=== PATIENT | female | born 1970 | race Caucasian/White ===

== ENCOUNTER → 2017-02-05 | Outpatient (CLI) | payer OTHER ==
[~2017-02-05] MED LIST: ALBU0.5N2 INH; ALBUAER2 INH; CALCTAB5 PO; CHOL100010 PO; CYCL5TAB28 PO; CYM/30 PO; FISHOIL PO; FLNIN NAE; LEVA1NEB19 INH; LORA-741 PO; MELO7.5T6 PO; PRAV20TA PO; SNG10 PO; TEMA30CA4 PO; TIOTCAP INH; TRAM-10 PO; VALA1TAB31 PO; [UNRECOGNIZED DRUG - CODE] PO
--- NOTE | 2017-02-05 13:55 | DIAGNOSTIC IMAGING REPORT ---
CHEST 2 VIEWS ROUTINE HISTORY: G47.34 Nocturnal [id number] COMPARISON: Chest 08/01/2015. FINDINGS: Right basilar linear density has almost completely resolved. This likely represents resolving subsegmental atelectasis. Stable blunting of the right lateral costophrenic sulcus. Left lung is clear. No new focal lung consolidations. No evidence for pulmonary edema. No pleural effusions. No pneumothorax. IMPRESSION: Improved aeration within the right lung base. No acute process within the chest. Electronically signed by: Corby Kenny M.D. 02/05/2017 1:53 PM Dictated Date/Time: 02/05/2017 1:52 PM
== END | disposition home or self-care (01) ==
LOC: C.RAD1850 13:33
PROVIDERS: ATTEND Internal Medicine Endocrinology, Diabetes & Metabolism
DX: G47.34 Idiopathic sleep related nonobstructive alveolar hypoventilation (principal)

== ENCOUNTER → 2017-02-13 | Outpatient (CLI) | payer OTHER ==
[2017-02-13 13:46] LABS: BASO % 0.5 %; BASO ABS # 0.05 K/uL (0-0.2); COMPLETE YES; EOS % 2.9 %; HEMATOCRIT 43.8 % (37-47); IG% 0.3 %; LYMPH % 40.5 %; LYMPH ABS # 4.26 K/uL (1.2-3.4); MEAN CELL VOLUME 89.9 fL (80-100); MEAN CORPUSCULAR HEMOGLOBIN 31.8 pg (25-34); MEAN CORPUSCULAR HGB CONC 35.4 g/dl (32-36); MEAN PLATELET VOLUME 9.6 fL (7.4-10.4); MONO % 5.6 %; NEUT % 50.2 %; PLATELET COUNT 253 K/uL (130-400); RED BLOOD COUNT 4.87 M/uL (4.2-5.4); WHITE BLOOD COUNT 10.51 K/uL (4.8-10.8)
[2017-02-13 14:20] LABS: ALT/SGPT 31 U/L (12-78); AST/SGOT 15 U/L (15-37); BLOOD UREA NITROGEN 14 mg/dl (7-18); BUN/CREATININE RATIO 15.4 (10-20); CALCIUM 9.9 mg/dl (8.5-10.1); CARBON DIOXIDE 29 mmol/L (21-32); CHLORIDE 105 mmol/L (98-107); CREATININE 0.88 mg/dl (0.60-1.20); GLUCOSE 96 mg/dl (70-99); POTASSIUM 3.9 mmol/L (3.5-5.1); SODIUM 140 mmol/L (136-145)
[2017-02-13 14:23] LABS: CHOLESTEROL 274 mg/dl (0-200); CHOLESTEROL/HDL RATIO 4.3; HDL CHOLESTEROL 63 mg/dl; LDL CHOLESTEROL CALCULATED 181 mg/dl; TRIGLYCERIDES 150 mg/dl (0-150); VERY LOW DENSITY LIPOPROT CALC 30 mg/dl
== END | disposition home or self-care (01) ==
LOC: C.LAB1850 12:46
PROVIDERS: ATTEND Internal Medicine
DX: E78.00 Pure hypercholesterolemia, unspecified (principal); M81.0 Age-related osteoporosis without current pathological fracture; G43.909 Migraine, unspecified, not intractable, without status migrainosus

== ENCOUNTER → 2017-06-05 | Outpatient (CLI) | payer OTHER ==
[~2017-06-05] MED LIST changes: +ALBINSX PO; +BUTA1CAP6 PO; +CALC-393 PO; +CHOL1TAB76 PO; +CIPR-255 PO; +CYCL5TAB PO; +FLUT50SP45 NAE; +METR-163 PO; +OMEGCAP2 PO; +OXYC1TAB3 PO; +PRAV80TA PO; +SPRIN/30 INH; +VNTHFA/IN INH; +XPNINS125 PO
--- NOTE | 2017-06-05 09:57 | DIAGNOSTIC IMAGING REPORT ---
LEFT ELBOW 3 VIEWS CLINICAL HISTORY: Left elbow pain. FINDINGS: 3 views of left elbow are obtained. No prior studies are available for comparison at the time of dictation. The skeletal structures are well mineralized. No fracture is seen. The joint spaces are well-maintained. There is no joint effusion. Mild dorsal soft tissue swelling is noted. IMPRESSION: Mild dorsal soft tissues swelling with no radiographic evidence of left elbow fracture. Electronically signed by: Bart Thibodeaux M.D. 06/05/2017 9:56 AM Dictated Date/Time: 06/05/2017 9:54 AM
--- NOTE | 2017-06-05 09:59 | DIAGNOSTIC IMAGING REPORT ---
RIGHT FOOT MIN 3 VIEWS ROUTINE CLINICAL HISTORY: 46 years-old Female presenting with chronic right foot pain. TECHNIQUE: Frontal, oblique, and lateral views of the right foot were obtained. COMPARISON: None. FINDINGS: No acute fracture, malalignment, or radiopaque foreign body. Bipartite lateral sesamoid noted at the first metatarsal. IMPRESSION: 1. No acute osseous injury. Electronically signed by: Baldo Asif 06/05/2017 9:57 AM Dictated Date/Time: 06/05/2017 9:55 AM
== END | disposition home or self-care (01) ==
LOC: C.RAD1850 09:39
PROVIDERS: ATTEND Internal Medicine
DX: M79.671 Pain in right foot (principal); M25.522 Pain in left elbow

== ENCOUNTER → 2017-06-13 | Outpatient (CLI) | payer OTHER ==
--- NOTE | 2017-06-16 15:12 | MAMMOGRAPHY REPORT ---
BILATERAL DIGITAL SCREENING MAMMOGRAM TOMOSYNTHESIS WITH CAD: 06/13/2017 CLINICAL HISTORY: Routine screening. Patient has no complaints. TECHNIQUE: Breast tomosynthesis in addition to standard 2D mammography was performed. Current study was also evaluated with a Computer Aided Detection (CAD) system. COMPARISON: Comparison is made to exams dated: 06/12/2016 mammogram, 05/15/2015 mammogram, 05/12/2014 m ammogram, 05/11/2013 mammogram, 09/24/2011 mammogram, and 05/18/2013 mammogram - [facility]. BREAST COMPOSITION: There are scattered areas of fibroglandular density in both breasts. FINDINGS: No suspicious masses, calcifications, or areas of architectural distortion are noted in ei ther breast. There has been no significant interval change compared to prior exams. IMPRESSION: ACR BI-RADS CATEGORY 1: NEGATIVE There is no mammographic evidence of malignancy. A 1 year screening mammogram is recommended. The pa tient will receive written notification of the results. Approximately 10% of breast cancers are not detected with mammography. A negative mammographic report should not delay biopsy if a clinically suggestive mass is present. Tram Bolton M.D. ah/:06/13/2017 15:57:03 Greige Mender: Ginny DELEON(Armen)(M), [facility] letter sent: Normal 1/2 BI-RADS Code: ACR BI-RADS Category 1: Negative
== END | disposition home or self-care (01) ==
LOC: C.MAMM 15:08
PROVIDERS: ATTEND Internal Medicine
DX: Z12.31 Encounter for screening mammogram for malignant neoplasm of breast (principal)

== ENCOUNTER 2017-09-05 13:09 | Emergency (ER) | payer OTHER ==
[~2017-09-05] VITALS: Ht 160 cm; Wt 70.1 kg
[~2017-09-05 13:09] MED LIST changes: -ALBINSX PO; -BUTA1CAP6 PO; -CALC-393 PO; -CHOL1TAB76 PO; -CIPR-255 PO; -CYCL5TAB PO; -FLUT50SP45 NAE; -METR-163 PO; -OMEGCAP2 PO; -OXYC1TAB3 PO; -PRAV80TA PO; -SPRIN/30 INH; -VNTHFA/IN INH; -XPNINS125 PO
[2017-09-05 13:12] VITALS: TEMP 37.3; Ht 160 cm; Wt 70.1 kg
[2017-09-05] MEDS ORDERED: FLUT50SP45 NAE (13:47)
[2017-09-05] MEDS ORDERED: CHOL1TAB76 PO (13:47)
[2017-09-05] MEDS ORDERED: PRAV80TA PO (13:47)
[2017-09-05] MEDS ORDERED: VNTHFA/IN INH (13:47)
[2017-09-05] MEDS ORDERED: CYCL5TAB PO (13:47)
[2017-09-05] MEDS ORDERED: SPRIN/30 INH (13:47)
[2017-09-05] MEDS ORDERED: SNG10 PO (13:47)
[2017-09-05] MEDS ORDERED: BUTA1CAP6 PO (13:47)
[2017-09-05] MEDS ORDERED: XPNINS125 PO (13:47)
[2017-09-05] MEDS ORDERED: ALBINSX PO (13:47)
[2017-09-05] MEDS ORDERED: CALC-393 PO (13:47)
[2017-09-05] MEDS ORDERED: OMEGCAP2 PO (13:47)
[2017-09-05] MEDS ORDERED: KETOROLAC TROMETHAMINE 30 MG/ML VIAL IV STA (13:48)
[2017-09-05] MEDS ORDERED: DiphenhydrAMINE HCL 50 MG/ML VIAL IV STA (13:48)
[2017-09-05] MEDS ORDERED: ONDANSETRON INJ 2 MG/ML 2 ML VIAL IV STA (13:48)
[2017-09-05] MEDS ORDERED: SODIUM CHLORIDE 0.9% 1000ML 1,000 ML IV STA (13:48)
[2017-09-05] MEDS ORDERED: DEXAMETHASONE SOD INJ 10 MG/ML VIAL PO ONE (14:00)
[2017-09-05 14:28] LABS: BASO % 0.2 %; BASO ABS # 0.03 K/uL (0-0.2); COMPLETE YES; EOS % 1.9 %; HEMATOCRIT 40.7 % (37-47); IG% 0.2 %; LYMPH % 21.3 %; LYMPH ABS # 2.87 K/uL (1.2-3.4); MEAN CELL VOLUME 90.2 fL (80-100); MEAN CORPUSCULAR HEMOGLOBIN 31.9 pg (25-34); MEAN CORPUSCULAR HGB CONC 35.4 g/dl (32-36); MEAN PLATELET VOLUME 9.5 fL (7.4-10.4); MONO % 7.3 %; NEUT % 69.1 %; PLATELET COUNT 243 K/uL (130-400); RED BLOOD COUNT 4.51 M/uL (4.2-5.4); WHITE BLOOD COUNT 13.46 K/uL (4.8-10.8)
[2017-09-05 14:36] LABS: INR 0.9 (0.9-1.1); PROTHROMBIN TIME (PATIENT) 9.9 SECONDS (9.0-12.0)
[2017-09-05 14:43] LABS: URINE APPEARANCE CLEAR (CLEAR); URINE BILIRUBIN NEG (NEG); URINE COLOR YELLOW; URINE NITRITE NEG (NEG); URINE PH 5.5 (4.5-7.5); URINE SPECIFIC GRAVITY 1.016 (1.000-1.030); UROBILINOGEN NEG (NEG); ZZUR CULT IF INDIC CLEAN CATCH NO
[2017-09-05 14:49] LABS: ALT/SGPT 28 U/L (12-78); AST/SGOT 10 U/L (15-37); BLOOD UREA NITROGEN 17 mg/dl (7-18); BUN/CREATININE RATIO 26.9 (10-20); CALCIUM 9.2 mg/dl (8.5-10.1); CARBON DIOXIDE 23 mmol/L (21-32); CHLORIDE 109 mmol/L (98-107); CREATININE 0.63 mg/dl (0.60-1.20); GLUCOSE 92 mg/dl (70-99); POTASSIUM 3.9 mmol/L (3.5-5.1); SODIUM 138 mmol/L (136-145)
[2017-09-05 14:52] LABS: ALKALINE PHOSPHATASE 102 U/L (45-117)
[2017-09-05 14:53] LABS: MANUAL MICROSCOPIC REQUIRED? NO; REVIEW REQ? NO
--- NOTE | 2017-09-05 17:30 | DIAGNOSTIC IMAGING REPORT ---
ABD/PELVIS IV AND ORAL CONT CLINICAL HISTORY: 47 years-old Female presenting with LLQ ABDOMINAL PAIN. TECHNIQUE: Multidetector CT of the abdomen and pelvis was performed after the administration of oral and intravenous contrast. IV contrast: 116 mL of Optiray 320. A dose lowering technique was used consistent with the principles of ALARA (as low as reasonably achievable). COMPARISON: 06/20/2010. CT DOSE (mGy.cm): The estimated cumulative dose is 350.79 mGy.cm. FINDINGS: Master Cook topogram: Unremarkable. Lung bases: Minimal dependent changes likely atelectasis. Normal heart size. No pericardial or pleural effusion. Liver: Normal morphology. Perfusional variation noted along the fissure for the ligamentum teres. Patent hepatic vasculature. Biliary: No intrahepatic or extrahepatic biliary ductal dilatation. Normal gallbladder. Pancreas: Mild parenchymal atrophy. Spleen: Normal. Adrenal glands: Normal. Kidneys and ureters: Nonobstructing 3 mm calculus at the lower pole of the right kidney. No left renal calculus. No hydronephrosis. Ureters normal. Bladder: Normal. Pelvic organs: Uterus surgically absent. No adnexal masses. Bowel: Diverticulosis with wall thickening and pericolonic inflammatory change at the level of the junction of the descending and sigmoid colon. Associated trace fluid and peritoneal thickening. No bowel obstruction. Normal appendix. Peritoneal cavity: Trace free fluid in the left lower quadrant. No gross evidence of pneumoperitoneum. Vasculature: Atherosclerosis of the normal caliber abdominal aorta. IVC patent. Lymph nodes: Few prominent lymph nodes in the left external iliac region, likely reactive. Few additional prominent nodes of the celiac axis, which are subcentimeter in the short axis. Abdominal wall: Small fat-containing umbilical hernia. Musculoskeletal: Normal. IMPRESSION: 1. Findings consistent with acute uncomplicated diverticulitis at the junction of the descending and sigmoid colon. No CT evidence of kirill perforation or adjacent abscess. 2. Nonobstructing 3 mm calculus in the right kidney. Electronically signed by: Baldo Asif M.D. 09/05/2017 5:28 PM Dictated Date/Time: 09/05/2017 5:21 PM
[2017-09-05] MEDS ORDERED: CIPR-255 PO (17:54)
[2017-09-05] MEDS ORDERED: METR-163 PO (17:54)
[2017-09-05] MEDS ORDERED: OXYC1TAB3 PO (17:54)
[2017-09-05 18:07] VITALS: BP 158/85; PULSE 85; O2SAT 98
--- NOTE | 2017-09-05 22:40 | EMERGENCY ROOM VISIT NOTE ---
History First contact with patient: 13:32 Chief Complaint: ABDOMINAL PAIN Stated Complaint: BURNING IN LOWER STOMACH History of Present Illness The patient is a 47 year old female who presents to the Emergency Room with complaints of left lower and lower central abdominal pain since yesterday morning around 9 AM. The patient reports that it first started as a pinching sensation that quickly evolved into a more constant burning pain. The patient reports worsening pain with deep breathing and pressure with bowel movements. The pain does occasionally radiate into the back. The patient reports a history of total abdominal hysterectomy in 2001, and required a large incisional hernia mesh repair 2 years later. Hysterectomy was performed because of endometriosis. The patient denies any abdominal complications since her herniorrhaphy. The patient reports that she is could certainly have another abdominal wall hernia as she has a 95 pound child at home with cerebral palsy, and has to lift him from floor level multiple times daily. The patient has never had a colonoscopy, nor does she admit to any known family history of bowel disease. The patient does not think that it is diverticulitis because she has no lower teeth, and cannot eat nuts or seeds. The patient reports a history of frequent urination, but has not noticed any recent change in frequency, hesitancy, urgency or dysuria. She denies any bloody or mucus stools. She denies history of constipation. The patient has had mild nausea without vomiting. She denies any fevers or chills, and rates her discomfort a 7 out of 10. Review of Systems HEENT: Denies dizziness, visual problems, hearing loss, tinnitus. Denies difficulty swallowing or oral lesions. PULMONARY: Denies cough, shortness of breath, sputum production or hemoptysis. CARDIOVASCULAR: Denies chest pain, palpitations, dyspnea on exertion, orthopnea or peripheral edema. GASTROINTESTINAL: Denies flatulence, belching, diarrhea, constipation or vomiting, otherwise see history of present illness. GENITOURINARY: Denies dysuria, urgency, hematuria or nocturia. NEUROLOGIC: Denies history of epilepsy, CVA, TIA or chronic headaches. MUSCULOSKELETAL: Denies history of joint tenderness/swelling. SKIN: Denies rashes or lesions. PSYCHIATRIC: Denies history of depression or mental illness. ENDOCRINE: Denies history of diabetes or thyroid disorders. Past Medical/Surgical History Medical Problems: (1) BACKACHE NOS (2) CHRONIC OBSTRUCTIVE ASTHMA, W (ACUTE) EXACERBATION (3) COPD (chronic obstructive pulmonary disease) Family History FH: cancer FH: hypertension FH: kidney disease FH: lung disease Social History Smoking Status: Current Every Day Smoker Alcohol Use: occasionally Marital Status: single Housing Status: lives alone Occupation Status: employed Current/Historical Medications Scheduled Calcium Carbonate (Calcium), 600 MG PO DAILY Cholecalciferol (D 1999), 2,000 UNITS PO DAILY Ciprofloxacin Hcl (Cipro), 500 MG PO BID Duloxetine HCl (Cymbalta), 30 MG PO DAILY Metronidazole (Flagyl), 500 MG PO TID Montelukast Sod (Montelukast Sodium), 10 MG PO QPM [place]-3 Fatty Acids (Fish Oil), 2 CAP PO DAILY Pravastatin Sodium (Pravachol), 80 MG PO DAILY Temazepam (Restoril), 30 MG PO HS Tiotropium [place] (Spiriva Handihaler), 1 CAP INH DAILY Valacyclovir Hcl (Valtrex), 2 GM PO DIRECTED Scheduled PRN Albuterol Hfa (Ventolin Hfa), 2-4 PUFFS INH Q6H PRN for SOB/Wheezing Albuterol Sulf (Albuterol Sulfate), 1 INHA PO Q4 PRN for Wheezing Hzimwubffv-Huxhxoajatjau-Kvspg (Butalbital/Acetaminophen/), 1 CAP PO Q4 PRN for Headache Cyclobenzaprine Hcl (Flexeril), 5 MG PO TID PRN for Muscle Spasms Fluticasone Propionate (Nasal) (Allergy Nasal [place] 24 Ho), 2 SPRAYS DIONE DAILY PRN for Nasal Congestion Levalbuterol (Levalbuterol HCl), 1 INHA PO BID PRN for SOB/Wheezing Lorazepam (Ativan), 0.5-1 MG PO BID PRN Meloxicam (Mobic), 7.5 MG PO BIDM PRN Oxycodone Ir (Roxicodone Ir), 1-2 TAB PO Q4H PRN for Pain Tramadol (Ultram), 50 MG PO Q6 PRN Allergies Coded Allergies: Cephalosporins (Verified Allergy, Mild, SWELLING, HAS TAKEN ZOSYN IN THE PAST, 09/05/17) Atorvastatin (Verified Allergy, Unknown, 09/05/17) Ceftriaxone (Verified Allergy, Unknown, SHORTNESS OF BREATH, 09/05/17) Codeine (Verified Allergy, Unknown, 09/05/17) Latex1 -Allergic Contact Dermititis (Verified Allergy, Unknown, HIVES, ITCHING, REDNESS, 09/05/17) CLEAR TAPE/TEGADERM Morphine (Verified Adverse Reaction, Unknown, HYPERTENSION, 09/05/17) Physical Exam Vital Signs Date Time Temp Pulse Resp B/P (MAP) Pulse Ox O2 Delivery O2 Flow Rate FiO2 09/05/17 18:07 85 18 158/85 98 09/05/17 16:31 78 18 134/70 98 Room Air 09/05/17 13:12 37.3 90 16 154/84 98 Room Air Physical Exam CONSTITUTIONAL: Healthy and well nourished. Alert and oriented X 3 with positive affect. Patient appears in mild discomfort from pain. She does not appear acutely ill or toxic. HEENT: Normocephalic, atraumatic. Pupils equal, round and reactive. No scleral icterus or conjunctival injection/pallor. OROPHARYNX: No tonsillar hypertrophy or exudates. NECK: Full active range of motion without discomfort. LYMPHATICS: No adenopathy noted. RESPIRATORY: Clear to auscultation bilaterally with no wheezing, crackles, rhonchi or stridor. CARDIOVASCULAR: Regular rate and rhythm with no murmurs, rubs or gallops. GASTROINTESTINAL: Bowel sounds present in all quadrants. Patient has suprapubic and left lower quadrant tenderness to palpation without rigidity, guarding or rebound. Negative CVA tenderness. Negative McBurney's point tenderness. Negative Tran sign. No palpable defects or masses noted along surgical incisions or bowel wall. MUSCULOSKELETAL: Full range of motion of all joints without discomfort. INTEGUMENTARY: No rash or other significant dermatologic conditions noted. HEMATOLOGIC: No ecchymosis or petechiae noted. NEUROLOGIC: No focal neurologic deficits noted. Medical Decision & Procedures ER Provider Diagnostic Interpretation: Enhanced CT of the abdomen and pelvis shows evidence for an acute diverticulitis without abscess formation or perforation. A 3 mm right renal calculus is also noted. Radiologist report is as follows: ABD/PELVIS IV AND ORAL CONT CLINICAL HISTORY: 47 years-old Female presenting with LLQ ABDOMINAL PAIN. TECHNIQUE: Multidetector CT of the abdomen and pelvis was performed after the administration of oral and intravenous contrast. IV contrast: 116 mL of Optiray 320. A dose lowering technique was used consistent with the principles of ALARA (as low as reasonably achievable). COMPARISON: 06/20/2010. CT DOSE (mGy.cm): The estimated cumulative dose is 350.79 mGy.cm. FINDINGS: [employer] topogram: Unremarkable. Lung bases: Minimal dependent changes likely atelectasis. Normal heart size. No pericardial or pleural effusion. Liver: Normal morphology. Perfusional variation noted along the fissure for the ligamentum teres. Patent hepatic vasculature. Biliary: No intrahepatic or extrahepatic biliary ductal dilatation. Normal gallbladder. Pancreas: Mild parenchymal atrophy. Spleen: Normal. Adrenal glands: Normal. Kidneys and ureters: Nonobstructing 3 mm calculus at the lower pole of the right kidney. No left renal calculus. No hydronephrosis. Ureters normal. Bladder: Normal. Pelvic organs: Uterus surgically absent. No adnexal masses. Bowel: Diverticulosis with wall thickening and pericolonic inflammatory change at the level of the junction of the descending and sigmoid colon. Associated trace fluid and peritoneal thickening. No bowel obstruction. Normal appendix. Peritoneal cavity: Trace free fluid in the left lower quadrant. No gross evidence of pneumoperitoneum. Vasculature: Atherosclerosis of the normal caliber abdominal aorta. IVC patent. Lymph nodes: Few prominent lymph nodes in the left external iliac region, likely reactive. Few additional prominent nodes of the celiac axis, which are subcentimeter in the short axis. Abdominal wall: Small fat-containing umbilical hernia. Musculoskeletal: Normal. IMPRESSION: 1. Findings consistent with acute uncomplicated diverticulitis at the junction of the descending and sigmoid colon. No CT evidence of kirill perforation or adjacent abscess. 2. Nonobstructing 3 mm calculus in the right kidney. Laboratory Results 09/05/17 14:15 Red Blood Count 4.51, Mean Corpuscular Volume 90.2, Mean Corpuscular Hemoglobin 31.9, Mean Corpuscular Hemoglobin Concent 35.4, Mean Platelet Volume 9.5, Neutrophils (%) (Auto) 69.1, Lymphocytes (%) (Auto) 21.3, Monocytes (%) (Auto) 7.3, Eosinophils (%) (Auto) 1.9, Basophils (%) (Auto) 0.2, Neutrophils # (Auto) 9.29, Lymphocytes # (Auto) 2.87, Monocytes # (Auto) 0.98, Eosinophils # (Auto) 0.26, Basophils # (Auto) 0.03 09/05/17 14:15 Test 09/05/17 14:15 09/05/17 14:30 White Blood Count 13.46 K/uL (4.8-10.8) Red Blood Count 4.51 M/uL (4.2-5.4) Hemoglobin 14.4 g/dL (12.0-16.0) Hematocrit 40.7 % (37-47) Mean Corpuscular Volume 90.2 fL (80-100) Mean Corpuscular Hemoglobin 31.9 pg (25-34) Mean Corpuscular Hemoglobin Concent 35.4 g/dl (32-36) Platelet Count 243 K/uL (130-400) Mean Platelet Volume 9.5 fL (7.4-10.4) Neutrophils (%) (Auto) 69.1 % Lymphocytes (%) (Auto) 21.3 % Monocytes (%) (Auto) 7.3 % Eosinophils (%) (Auto) 1.9 % Basophils (%) (Auto) 0.2 % Neutrophils # (Auto) 9.29 K/uL (1.4-6.5) Lymphocytes # (Auto) 2.87 K/uL (1.2-3.4) Monocytes # (Auto) 0.98 K/uL (0.11-0.59) Eosinophils # (Auto) 0.26 K/uL (0-0.5) Basophils # (Auto) 0.03 K/uL (0-0.2) RDW Standard Deviation 44.4 fL (36.4-46.3) RDW Coefficient of Variation 13.4 % (11.5-14.5) Immature Granulocyte % (Auto) 0.2 % Immature Granulocyte # (Auto) 0.03 K/uL (0.00-0.02) Prothrombin Time 9.9 SECONDS (9.0-12.0) Prothromb Time International Ratio 0.9 (0.9-1.1) Activated Partial Thromboplast Time 26.6 SECONDS (21.0-31.0) Partial Thromboplastin Ratio 1.0 Anion Gap 6.0 mmol/L (3-11) Est Creatinine Clear Calc Drug Dose 101.4 ml/min Estimated GFR () 122.1 Estimated GFR (Non- 105.3 BUN/Creatinine Ratio 26.9 (10-20) Calcium Level 9.2 mg/dl (8.5-10.1) Total Bilirubin 0.4 mg/dl (0.2-1) Direct Bilirubin < 0.1 mg/dl (0-0.2) Aspartate Amino Transf (AST/SGOT) 10 U/L (15-37) Alanine Aminotransferase (ALT/SGPT) 28 U/L (12-78) Alkaline Phosphatase 102 U/L (45-117) Total Creatine Kinase 77 U/L (26-192) Total Protein 7.0 gm/dl (6.4-8.2) Albumin 3.7 gm/dl (3.4-5.0) Lipase 113 U/L (73-393) Urine Color YELLOW Urine Appearance CLEAR (CLEAR) Urine pH 5.5 (4.5-7.5) Urine Specific [place] 1.016 (1.000-1.030) Urine Protein NEG (NEG) Urine Glucose (UA) NEG (NEG) Urine Ketones NEG (NEG) Urine Occult Blood NEG (NEG) Urine Nitrite NEG (NEG) Urine Bilirubin NEG (NEG) Urine Urobilinogen NEG (NEG) Urine Leukocyte Esterase NEG (NEG) The above labs were reviewed. Urinalysis is unremarkable. Remaining labs include an elevated white count with left shift and bandemia. Partial renal profile is normal. Medications Administered Medications (Trade) Dose Ordered Sig/Tim Route Start Time Stop Time Status Last Admin Dose Admin Ketorolac Tromethamine (Toradol Inj) 30 mg NOW STAT IV 09/05/17 13:48 09/05/17 13:52 DC 09/05/17 14:22 30 MG Sodium Chloride 1,000 ml @ 999 mls/hr Q1H1M STAT IV 09/05/17 13:48 09/05/17 14:48 DC 09/05/17 14:23 999 MLS/HR Ondansetron HCl (Zofran Inj) 4 mg NOW STAT IV 09/05/17 13:48 09/05/17 13:52 DC 09/05/17 14:21 4 MG Diphenhydramine HCl (Benadryl Inj) 25 mg NOW STAT IV 09/05/17 13:48 09/05/17 13:52 DC 09/05/17 14:22 25 MG Dexamethasone Sodium Phosphate (Decadron Inj) 10 mg NOW ONCE PO 09/05/17 14:00 09/05/17 14:01 DC 09/05/17 14:22 10 MG Procedure 1. IV hydration: The patient was administered normal saline 1 L bolus 2. IV medications: Toradol 30 mg, Decadron 10 mg and Benadryl 25 mg IVP ED Course Patient history and physical exam were performed. Nurse's notes were reviewed. Vital signs were reviewed, showing a marginally elevated blood pressure of 154 /84. The patient appears in mild discomfort, and does not appear acutely ill or toxic. Based on history and clinical exam findings, I did suggest performing an enhanced CT of the abdomen and pelvis. When asked if the patient has an allergy to iodine or shellfish, she reports that she has had some GI symptoms and lip tingling the last few times that she has eaten crabs at [employer]. She does not have any problems with shrimp. Because of a possible mild allergy, I did suggest pretreating with Benadryl and corticosteroids as well, and the patient was in agreement. IV access was established, and labs were drawn. The patient was hydrated with normal saline, and received IV Toradol for pain, and IV Zofran for nausea. She refused any stronger analgesics. Review of labs shows a leukocytosis with left shift and bandemia. Otherwise remaining labs, including urinalysis, are normal. Enhanced CT of the abdomen and pelvis shows evidence for an acute diverticulitis and right renal calculus. The patient tolerated IV and oral contrast without any difficulties. The patient was provided prescriptions for Cipro, Flagyl and OxyIR 5 mg. The patient was given an educational handout regarding diverticulitis. She was instructed to follow-up with her PCP closely within the next 2-3 days. Return to the emergency department for any progressively worsening pain, rectal bleeding or developing fever. The patient was happy with plan of care, voiced understanding of all discharge instructions, refused any additional analgesics prior to discharge, and rated her pain a 3 out of 10. Medical Decision Workup today shows evidence for diverticulitis, which I suspect is causing the patient's current symptoms. She does have an incidental 3 mm right renal calculus with a known history of kidney stones. At the current time, her CT scan does not show any evidence for abscess or perforation. I do feel that the patient is safe for outpatient management, with instructions to return for any progressively worsening symptoms. Other laboratory studies are not suggestive of UTI, pancreatitis, cholecystitis or hepatitis. She has no peritoneal findings on exam. [place] [facility] Monitoring [facility] Search Results: patient reviewed within database, no issues identified Impression Primary Impression: Diverticulitis Additional Impression: Renal calculus, right Departure Information Prescriptions Oxycodone Ir (Roxicodone Ir) 5 Mg Tab 1-2 TAB PO Q4H Y for Pain, #15 TAB For Initial Treatment Prov: Arias Hines PA 09/05/17 Metronidazole (Flagyl) 500 Mg Tab 500 MG PO TID for Pain for 10 Days, #30 TAB For Initial Treatment Prov: Arias Hines PA 09/05/17 Ciprofloxacin Hcl (CIPRO) 500 Mg Tab 500 MG PO BID for 10 Days, #20 TAB Prov: Arias Hines PA 09/05/17 Referrals Pro,Geoff Siu M.D. (PCP) Patient Instructions [facility] Problem Qualifiers Primary Impression: Diverticulitis Diverticulitis site: large intestine Diverticulitis bleeding: without bleeding Diverticulitis complication: without perforation or abscess Qualified Codes: K57.32 - Diverticulitis of large intestine without perforation or abscess without bleeding
== END 2017-09-05 18:08 | disposition home or self-care (01) ==
LOC: C.EDB 13:10 → C.EDC 18:08
DX: K57.32 Diverticulitis of large intestine without perforation or abscess without bleeding (principal); N20.0 Calculus of kidney; J44.1 Chronic obstructive pulmonary disease with (acute) exacerbation; J44.9 Chronic obstructive pulmonary disease, unspecified; Z82.49 Family history of ischemic heart disease and other diseases of the circulatory system; F17.200 Nicotine dependence, unspecified, uncomplicated

== ENCOUNTER → 2018-01-13 | Outpatient (CLI) | payer OTHER ==
[~2018-01-13] MED LIST changes: +ALBINSX PO; -ALBU0.5N2 INH; -ALBUAER2 INH; +BUTA1CAP6 PO; +CALC-393 PO; -CALCTAB5 PO; -CHOL100010 PO; +CHOL1TAB76 PO; +CIPR-255 PO; +CYCL5TAB PO; -CYCL5TAB28 PO; -FISHOIL PO; -FLNIN NAE; +FLUT50SP45 NAE; -LEVA1NEB19 INH; +OMEGCAP2 PO; +OXYC1TAB3 PO; -PRAV20TA PO; +PRAV80TA PO; +SPRIN/30 INH; -TIOTCAP INH; +VNTHFA/IN INH; +XPNINS125 PO; -[UNRECOGNIZED DRUG - CODE] PO
[2018-01-13 13:19] LABS: HEMATOCRIT 41.4 % (37-47); HEMOGLOBIN 14.6 g/dL (12.0-16.0); MEAN CELL VOLUME 90.2 fL (80-100); MEAN CORPUSCULAR HEMOGLOBIN 31.8 pg (25-34); MEAN CORPUSCULAR HGB CONC 35.3 g/dl (32-36); MEAN PLATELET VOLUME 9.7 fL (7.4-10.4); PLATELET COUNT 294 K/uL (130-400); RED CELL DISTRIBUTION WIDTH SD 42.4 fL (36.4-46.3); WHITE BLOOD COUNT 8.16 K/uL (4.8-10.8)
[2018-01-13 13:53] LABS: AST/SGOT 14 U/L (15-37); BLOOD UREA NITROGEN 17 mg/dl (7-18); CALCIUM 9.7 mg/dl (8.5-10.1); CARBON DIOXIDE 25 mmol/L (21-32); CHOLESTEROL 264 mg/dl (0-200); CREATININE 0.66 mg/dl (0.60-1.20); GLUCOSE 92 mg/dl (70-99); POTASSIUM 3.7 mmol/L (3.5-5.1); SODIUM 139 mmol/L (136-145)
[2018-01-13 14:04] LABS: ALT/SGPT 31 U/L (12-78); LDL CHOLESTEROL CALCULATED 179 mg/dl
== END | disposition home or self-care (01) ==
LOC: C.LAB1850 11:36
PROVIDERS: ATTEND Internal Medicine
DX: E78.00 Pure hypercholesterolemia, unspecified (principal); E55.9 Vitamin D deficiency, unspecified; G47.00 Insomnia, unspecified; R53.83 Other fatigue

== ENCOUNTER → 2018-03-18 | Outpatient (CLI) | payer OTHER ==
[~2018-03-18] MED LIST changes: -OXYC1TAB3 PO
== END | disposition home or self-care (01) ==
LOC: C.PATHSPEC 17:08
PROVIDERS: ATTEND Dermatology
DX: D23.61 Other benign neoplasm of skin of right upper limb, including shoulder (principal)